=== PATIENT | female | born 1995 | race Caucasian/White ===

== ENCOUNTER 2019-03-25 14:49 | Emergency (ER) | payer MEDICAID ==
[~2019-03-25] VITALS: Ht 157.5 cm; Wt 77.4 kg
[~2019-03-25 14:49] MED LIST: HYDR-4011 PO
[2019-03-25 15:00] VITALS: BP 117/65; PULSE 85; RESP 18; Ht 157.5 cm; Wt 77.4 kg
== END 2019-03-25 17:20 | disposition home or self-care (01) ==
LOC: FTE 14:49
DX: O02.1 Missed abortion (principal); O34.91 Maternal care for abnormality of pelvic organ, unspecified, first trimester; N85.8 Other specified noninflammatory disorders of uterus
CPT/HCPCS: 76801; 76817; 81001; 84702; 85025; 86900; 86901; Z7502; 81003